=== PATIENT | female | born 1975 | race Caucasian/White ===

== ENCOUNTER 2022-05-18 10:32 | Outpatient (CLI) | payer OTHER, SELFPAY ==
--- NOTE | ~2022-05-18 | XR_ITS ---
EXAMINATION: XR foot LT standing 2V, XR foot RT standing 2V DATE: 05/18/2022 11:10 INDICATION: Unspecified osteoarthritis at unspecified site. TECHNIQUE: 1. Weight bearing dorsal plantar and lateral views of the left foot were obtained. 2. Weight bearing dorsal plantar and lateral views of the right foot were obtained. COMPARISON: None. FINDINGS: Normal alignment at the bilateral feet. No fractures. Mild osteoarthritis at the bilateral first meta tarsophalangeal and a few bilateral tarsometatarsal and interphalangeal joints. No erosions to sugges t an inflammatory arthritis. Bone island at the distal left tibia. Soft tissues are unremarkable. IMPRESSION: 1. Relative symmetric pattern of mild polyarticular osteoarthritis in the bilateral mid and forefeet. Reviewed, dictated and finalized at location A. IMPRESSION: 1. Relative symmetric pattern of mild polyarticular osteoarthritis in the [facility] mid and forefeet.
--- NOTE | ~2022-05-18 | XR_ITS ---
EXAMINATION: XR sacroiliac joints min 3V DATE: 05/18/2022 11:10 INDICATION: Unspecified osteoarthritis of unspecified site TECHNIQUE: Frontal, angled frontal and lateral views of the sacrum and coccyx were obtained. COMPARISON: None. FINDINGS: Alignment is normal. No fracture. Bilateral hip joint spaces are normal. Mild osteoarthritis at the b ilateral sacroiliac joints. No erosions to suggest inflammatory sacroiliitis. Mild lower lumbar spond ylosis. A few phleboliths in the pelvis. IMPRESSION: 1. Mild osteoarthritis at the bilateral sacroiliac joints with no erosions to suggest an inflammatory sacroiliitis. Reviewed, dictated and finalized at location A. IMPRESSION: 1. Mild osteoarthritis at the bilateral sacroiliac joints with no erosions to s uggest an inflammatory sacroiliitis.
--- NOTE | ~2022-05-18 | XR_ITS ---
EXAMINATION: HAND-NICK ARTHRITIS 3+VIEWS DATE: 05/18/2022 11:10 INDICATION: Unspecified osteoarthritis, unspecified site. TECHNIQUE: Posteroanterior, lateral, and oblique views of the left and of the right hands as well as a ballcatchers view of both hands were obtained. COMPARISON: None. FINDINGS: Alignment is normal at the bilateral hands and wrists. Joint spaces are normal at the bilateral hands and wrists. No erosions or osteophytosis. Soft tissues are unremarkable. IMPRESSION: 1. Negative bilateral hand radiographs. Reviewed, dictated and finalized at location A.
== END 2022-05-18 10:33 | disposition home or self-care (01) ==
LOC: ANHIMG 10:36
PROVIDERS: PCP Family Medicine; Visit Provider Internal Medicine
DX: M19.90 Unspecified osteoarthritis, unspecified site (principal); R76.8 Other specified abnormal immunological findings in serum; M53.3 Sacrococcygeal disorders, not elsewhere classified
CPT/HCPCS: 72202; 73130; 73620

== ENCOUNTER 2023-05-25 13:49 | Outpatient (CLI) | payer OTHER, SELFPAY ==
--- NOTE | ~2023-05-25 | MR_ITS ---
EXAMINATION: MRI SACRUM W/O CONTRAST DATE: 05/25/2023 14:58 INDICATION: Unspecified osteoarthritis. Inflammatory arthritis with positive MARVIN test. Bilateral hip pain. TECHNIQUE: Magnetic resonance imaging (MRI) of the sacrum and coccyx was performed without and with 1 7 mL Multihance intravenous contrast. Sequences included sagittal PD-weighted FSE; oblique axial T1- weighted FSE, T2-weighted FS FSE and T1-weighted FS FSE; oblique coronal T2-weighted FSE, T1-weighted FSE and T2-weighted FS FSE. Postcontrast axial, sagittal and coronal T1-weighted FS FSE sequences we re also obtained. COMPARISON: Radiographs dated 05/28/2022 FINDINGS: Mild osteoarthritis with mild nonuniform joint space narrowing at the bilateral sacroiliac joints. Bi lateral hip joint spaces appear relatively preserved. Small focus of mild subarticular edema-like sig nal change and enhancement along the posterior iliac side of the right sacroiliac joint without evide nt without a definitive cortical erosion is could be related small focus of high-grade chondral malac ia associated with the osteoarthritis or potentially an otherwise occult tiny erosion in the setting of an inflammatory arthritis. Bone marrow signal is otherwise normal throughout with no fracture or p athologic marrow replacing process. Annular fissures at the posterior aspect of the L2-L3 through L5- S1 discs. 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 11 mm left ovarian cyst/follicle. Minimal likely physiologic free fluid in the cul-de-sac. No patholo gically enlarged pelvic lymphadenopathy. IMPRESSION: 1. Mild bilateral sacroiliac osteoarthritis with small focus of subarticular edema-like signal change and enhancement at the right sacral iliac joint most likely degenerative in etiology although could not absolutely a small erosion related to an inflammatory arthritis. Reviewed, dictated and finalized at location A. IMPRESSION: 1. Mild bilateral sacroiliac osteoarthritis with small focus of subarticular ed josette-like signal change and enhancement at the right sacral iliac joint most lik krys degenerative in etiology although could not absolutely a small erosion rela maryellen to an inflammatory arthritis.
== END 2023-05-25 13:50 | disposition home or self-care (01) ==
LOC: ANHIMG 13:54
PROVIDERS: Visit Provider Internal Medicine
DX: M19.90 Unspecified osteoarthritis, unspecified site (principal); M25.559 Pain in unspecified hip; M53.3 Sacrococcygeal disorders, not elsewhere classified
CPT/HCPCS: 72197; A9577